=== PATIENT | female | born 1995 | race Caucasian/White ===

== ENCOUNTER 2021-07-10 07:10 | Inpatient (IN) | payer OTHER ==
[2021-07-10] MEDS: ELECTROLYTE-148 SOLN 1,000 ML IV SCH ×2 (09:45→14:30)
[2021-07-10 10:25] VITALS: BMI 31.4
[2021-07-10 10:38] LABS: INR 0.87 (0.83-1.09)
[2021-07-10 10:41] LABS: ACTIVATED PTT 28.7 SECONDS (25.2-36.5)
[2021-07-10 10:42] LABS: BLOOD UREA NITROGEN 9.4 mg/dL (7-18); CALCIUM 9.6 mg/dL (8.5-10.1)
[2021-07-10 10:46] LABS: CREATININE 0.5 mg/dL (0.55-1.3)
[2021-07-10 10:47] LABS: BASO % 0.4 % (0-2.0); EOS % 0.5 % (0-4.5); HEMATOCRIT 37.6 % (32.4-45.2); HEMOGLOBIN 12.6 GM/dL (10.7-15.3); LYMPH % 44.9 % (8-40); MCH 29.4 pg (25.7-33.7); MCHC 33.5 g/dl (32.0-36.0); MEAN CELL VOLUME 87.8 fl (80-96); MEAN PLT VOLUME 7.6 fl (7.5-11.1); MONO % 19.9 % (3.8-10.2); NEUT % 34.3 % (42.8-82.8); PLATELET COUNT 230 10^3/uL (134-434); RBC 4.29 M/mm3 (3.60-5.2); RDW 14.5 % (11.6-15.6)
[2021-07-10] MEDS ORDERED: FENTANYL/BUPIVACAINE/NS/PF - PCEA - 50 ML DISP.SYRIN EP ONE ×2 (10:50→16:06)
[2021-07-10] MEDS ORDERED: BUPIVACAINE HCL/PF 0.25% (2.5MG/ML) 10 ML VIAL ONE (11:01)
[2021-07-10] MEDS: FENTANYL/BUPIVACAINE/NS/PF - PCEA - 50 ML DISP.SYRIN EP SCH ×2 (11:25→16:10)
[2021-07-10] MEDS ORDERED: NALOXONE HCL 0.4 MG/ML VIAL IVPUSH PRN (11:39)
[2021-07-10] MEDS ORDERED: OXYTOCIN 30 UNITS in 0.9% NS 30 UNIT/500 ML INFUS.BAG IVPB SCH (12:15)
[2021-07-10] MEDS ORDERED: OXYTOCIN 30 UNITS in 0.9% NS 30 UNIT/500 ML INFUS.BAG IVPB ONE (12:23)
[2021-07-10] MEDS ORDERED: OXYTOCIN 20 UNITS in 0.9% NS 20 UNIT/1,000 ML INFUS.BAG IV ONE (17:46)
[2021-07-10] MEDS ORDERED: ACETAMINOPHEN 325 MG TABLET (FP) PO PRN (20:12)
[2021-07-10] MEDS ORDERED: BISACODYL 10 MG SUPP.RECT RC PRN (20:12)
[2021-07-10] MEDS ORDERED: BENZOCAINE 28 GM HEMORRHOIDAL OINTMENT TP PRN (20:12)
[2021-07-10] MEDS ORDERED: BENZOCAINE 20% 57 GM BOTTLE TP PRN (20:12)
[2021-07-10] MEDS ORDERED: WITCH HAZEL 50% (TUCKS) 40 PAD/JAR PAD TP PRN (20:12)
[2021-07-10] MEDS ORDERED: OXYTOCIN 20 UNITS in 0.9% NS 20 UNIT/1,000 ML INFUS.BAG IV SCH (20:15)
[2021-07-10 21:02] LABS: CORD PCO2 39.8 mmHg (30-78)
[2021-07-10 21:03] LABS: CORD BASE EXCESS -9.2 mmol/L (0-2); CORD HCO3 17.3 mmHg (20-29)
[2021-07-10 21:07] LABS: CORD pH 7.257 (7.14-7.44)
[2021-07-10] MEDS: IBUPROFEN 600 MG TABLET (FP) PO PRN (21:35)
[2021-07-11] MEDS: IBUPROFEN 600 MG TABLET (FP) PO PRN ×2 (05:36→15:00)
[2021-07-11 09:15] LABS: BASO % 0.1 % (0-2.0); EOS % 0.5 % (0-4.5); HEMATOCRIT 28.9 % (32.4-45.2); HEMOGLOBIN 9.7 GM/dL (10.7-15.3); LYMPH % 20.8 % (8-40); MCH 29.4 pg (25.7-33.7); MCHC 33.4 g/dl (32.0-36.0); MEAN CELL VOLUME 87.9 fl (80-96); MEAN PLT VOLUME 7.3 fl (7.5-11.1); MONO % 14.1 % (3.8-10.2); NEUT % 64.5 % (42.8-82.8); PLATELET COUNT 192 10^3/uL (134-434); RBC 3.29 M/mm3 (3.60-5.2); RDW 14.6 % (11.6-15.6)
[2021-07-11] MEDS ORDERED: SENNOSIDES/DOCUSATE COMBO (SENNA PLUS) TABLET (UD) PO PRN (22:00)
[2021-07-12] MEDS: FENTANYL/BUPIVACAINE/NS/PF - PCEA - 50 ML DISP.SYRIN EP SCH (07:05)
[2021-07-12 08:40] VITALS: BP 103/70; PULSE 80; TEMP 97.8
== END 2021-07-12 12:45 | disposition home or self-care (01) | DRG 560 ==
LOC: JDEL 07:10 → JLDR 09:15 → J3W 21:27
PROVIDERS: ADMIT Student in an Organized Health Care Education/Training Program; ATTEND Student in an Organized Health Care Education/Training Program
PROC: 10E0XZZ Delivery of Products of Conception, External Approach (ICD-10-PCS; principal; 2021-07-10)
PROC: 0KQM0ZZ Repair Perineum Muscle, Open Approach (ICD-10-PCS; 2021-07-10)
PROC: 0W8NXZZ Division of Female Perineum, External Approach (ICD-10-PCS; 2021-07-10)
DX: O70.1 Second degree perineal laceration during delivery (principal); Z3A.40 40 weeks gestation of pregnancy; Z37.0 Single live birth
CPT/HCPCS: 36415; 36600; 59025; 59409; 80048; 82803; 85025; 85610; 85730; 86780; 86850; 86900; 86901; C9803-CS; U0003; U0005

== ENCOUNTER 2022-02-21 10:29 | Emergency (ER) | payer OTHER ==
[2022-02-21 10:48] VITALS: BP 118/76; PULSE 106; RESP 20; TEMP 98.6; BMI 29.1
== END 2022-02-21 12:10 | disposition home or self-care (01) ==
LOC: JERFT 10:29
DX: B08.4 Enteroviral vesicular stomatitis with exanthem (principal)
CPT/HCPCS: 99281-25

== ENCOUNTER 2023-07-11 05:50 | Inpatient (IN) | payer OTHER ==
[2023-07-11] MEDS: ELECTROLYTE-148 SOLN 1,000 ML IV SCH (06:30)
[2023-07-11] MEDS ORDERED: PENICILLIN G POTASSIUM 5,000,000 UNIT/250 ML BAG IVPB ONE (06:38)
[2023-07-11] MEDS: PENICILLIN G POTASSIUM 5,000,000 PRE-DOCK IN NS 250 ML IVPB ONE (06:43)
[2023-07-11] MEDS ORDERED: OXYTOCIN 30 UNITS in 0.9% NS 30 UNIT/500 ML INFUS.BAG IVPB ONE (07:07)
[2023-07-11] MEDS ORDERED: MISOPROSTOL 200 MCG TABLET ONE (07:14)
[2023-07-11] MEDS: OXYTOCIN 20 UNITS in 0.9% NS 20 UNIT/1,000 ML INFUS.BAG IV SCH (07:15)
[2023-07-11] MEDS: MISOPROSTOL 200 MCG TABLET PR ONE (07:16)
[2023-07-11] MEDS: METHYLERGONOVINE MALEATE 0.2 MG/1 ML AMP IM PRN (07:18)
[2023-07-11 07:22] VITALS: BMI 33.6
[2023-07-11] MEDS: CARBOPROST TROMETHAMINE 250 MCG/ML AMPUL IM ONE (07:24)
[2023-07-11] MEDS: TRANEXAMIC ACID 1000 MG/10 ML VIAL IVPB ONE (07:34)
[2023-07-11 07:44] LABS: BASO % 0.3 % (0-2.0); EOS % 0.4 % (0-4.5); HEMATOCRIT 39.5 % (32.4-45.2); LYMPH % 21.6 % (8-40); MCH 30.3 pg (25.7-33.7); MEAN PLT VOLUME 7.4 fl (7.5-11.1); MONO % 5.2 % (3.8-10.2); NEUT % 72.5 % (42.8-82.8); PLATELET COUNT 200 10^3/uL (134-434); RDW 13.9 % (11.6-15.6); WHITE BLOOD COUNT 9.5 K/mm3 (4.0-10.0)
[2023-07-11 07:51] LABS: INR 0.93 (0.83-1.09); PROTHROMBIN TIME (PATIENT) 10.5 SEC (9.7-13.0)
[2023-07-11 07:53] LABS: ACTIVATED PTT 29.6 SECONDS (25.2-36.5)
[2023-07-11] MEDS ORDERED: OXYTOCIN 20 UNITS in 0.9% NS 20 UNIT/1,000 ML INFUS.BAG IV ONE (07:55)
[2023-07-11 07:59] LABS: CORD BASE EXCESS -5.9 mmol/L (0-2); CORD HCO3 19.6 mmHg (20-29); CORD PCO2 38.7 mmHg (30-78); CORD pH 7.322 (7.14-7.44)
[2023-07-11 07:59] LABS: POTASSIUM 3.5 mmol/L (3.5-5.1)
[2023-07-11 08:00] LABS: CALCIUM 8.4 mg/dL (8.5-10.1)
[2023-07-11 08:00] LABS: CORD BASE EXCESS -4.5 mmol/L (0-2); CORD HCO3 22.7 mmHg (20-29); CORD PCO2 49.6 mmHg (30-78); CORD pH 7.279 (7.14-7.44)
[2023-07-11 08:01] LABS: BLOOD UREA NITROGEN 5.7 mg/dL (7-18)
[2023-07-11 08:04] LABS: CREATININE 0.7 mg/dL (0.55-1.3)
[2023-07-11] MEDS ORDERED: WITCH HAZEL 50% (TUCKS) 40 PAD/JAR PAD TP PRN (08:14)
[2023-07-11] MEDS ORDERED: BENZOCAINE 28 GM HEMORRHOIDAL OINTMENT TP PRN (08:14)
[2023-07-11] MEDS ORDERED: oxyCODONE HCL 5 MG TABLET PO PRN (08:14)
[2023-07-11] MEDS ORDERED: BENZOCAINE 20% 57 GM BOTTLE TP PRN (08:14)
[2023-07-11] MEDS ORDERED: BISACODYL 10 MG SUPP.RECT RC PRN (08:14)
[2023-07-11] MEDS ORDERED: TRANEXAMIC ACID 1000 MG/10 ML VIAL ONE (08:15)
[2023-07-11] MEDS: IBUPROFEN 600 MG TABLET (FP) PO PRN (10:23)
[2023-07-11] MEDS ORDERED: PENICILLIN G POTASSIUM 2,500,000 UNIT in SODIUM CHLORIDE 100 ML IVPB SCH (10:30)
[2023-07-11 15:20] LABS: BASO % 0.3 % (0-2.0); EOS % 0.1 % (0-4.5); HEMATOCRIT 37.7 % (32.4-45.2); HEMOGLOBIN 12.5 GM/dL (10.7-15.3); MCH 30.2 pg (25.7-33.7); MCHC 33.1 g/dl (32.0-36.0); MEAN PLT VOLUME 7.8 fl (7.5-11.1); MONO % 6.5 % (3.8-10.2); NEUT % 82.1 % (42.8-82.8); PLATELET COUNT 195 10^3/uL (134-434); RBC 4.14 M/mm3 (3.60-5.2); RDW 13.9 % (11.6-15.6); WHITE BLOOD COUNT 15.2 K/mm3 (4.0-10.0)
[2023-07-12 08:15] LABS: BASO % 0.3 % (0-2.0); EOS % 0.6 % (0-4.5); HEMATOCRIT 34.6 % (32.4-45.2); HEMOGLOBIN 11.7 GM/dL (10.7-15.3); LYMPH % 19.1 % (8-40); MCH 30.6 pg (25.7-33.7); MCHC 33.8 g/dl (32.0-36.0); MEAN CELL VOLUME 90.5 fl (80-96); MEAN PLT VOLUME 7.4 fl (7.5-11.1); PLATELET COUNT 203 10^3/uL (134-434); RBC 3.82 M/mm3 (3.60-5.2); RDW 14.3 % (11.6-15.6)
[2023-07-12] MEDS ORDERED: TRANEXAMIC ACID 1000 MG/10 ML VIAL IVPB ONE (09:00)
[2023-07-12] MEDS: ACETAMINOPHEN 325 MG TABLET (FP) PO PRN (21:51)
[2023-07-12] MEDS ORDERED: SENNOSIDES/DOCUSATE COMBO (SENNA PLUS) TABLET (UD) PO PRN (22:00)
[2023-07-13 10:11] VITALS: BP 102/67; PULSE 89; RESP 18; TEMP 98.6
== END 2023-07-13 11:50 | disposition home or self-care (01) | DRG 560 ==
LOC: JDEL 05:50 → JLDR 06:25 → J3W 09:55
PROVIDERS: ADMIT Obstetrics & Gynecology Obstetrics; ATTEND Obstetrics & Gynecology Obstetrics
PROC: 10E0XZZ Delivery of Products of Conception, External Approach (ICD-10-PCS; principal; 2023-07-11)
PROC: 0HQ9XZZ Repair Perineum Skin, External Approach (ICD-10-PCS; 2023-07-11)
DX: O48.0 Post-term pregnancy (principal); O70.0 First degree perineal laceration during delivery; Z3A.40 40 weeks gestation of pregnancy; Z37.0 Single live birth
CPT/HCPCS: 36415; 36600; 59025; 80048; 82803; 85025; 85610; 85730; 86780; 86850; 86900; 86901; 86922